=== PATIENT | female | born 1975 | race Caucasian/White ===

== ENCOUNTER 2022-08-06 06:00 | Day surgery (SDC) | payer BC, OTHER ==
[~2022-08-06 06:00] MED LIST: Sodium Chloride 0.9% 10 ML Syringe FLUSH SCH
[2022-08-06] MEDS ORDERED: fentaNYL 100 MCG/2 ML SDV IV ONE ×7 (06:01→07:14)
[2022-08-06] MEDS ORDERED: Midazolam 1 MG/ML 2 ML SDV IV ONE ×7 (06:01→07:09)
[2022-08-06] MEDS ORDERED: fentaNYL 100 MCG/2 ML SDV ONE (06:11)
[2022-08-06] MEDS ORDERED: Midazolam 1 MG/ML 2 ML SDV ONE (06:11)
[2022-08-06] MEDS ORDERED: Sodium Chloride 0.9% 10 ML Syringe FLUSH PRN (06:30)
[2022-08-06] MEDS ORDERED: Dextrose 5%-0.45% NaCl 1,000 ML IV SCH (06:30)
== END 2022-08-06 08:50 | disposition home or self-care (01) ==
LOC: DL.ENDO 06:00
PROVIDERS: ATTEND Internal Medicine Gastroenterology
DX: Z12.11 Encounter for screening for malignant neoplasm of colon (principal); K57.30 Diverticulosis of large intestine without perforation or abscess without bleeding; Z98.890 Other specified postprocedural states; Z88.0 Allergy status to penicillin; Z88.2 Allergy status to sulfonamides; Z88.1 Allergy status to other antibiotic agents; Z88.5 Allergy status to narcotic agent
CPT/HCPCS: J2250; J3010; J7042